=== PATIENT | female | born 1985 | race African-American/Black ===

== ENCOUNTER 2021-08-13 08:53 | Emergency (ER) | payer MEDICAID, OTHER, SELFPAY ==
[2021-08-13 09:04] VITALS: BP 151/49; PULSE 78; RESP 18; TEMP 36.6; O2SAT 98; BMI 31.7
--- NOTE | 2021-08-13 09:34 | ED_ITS ---
HPI - Dental/Oral General Chief complaint: Dental/Oral Stated complaint: dental pain Time Seen by Provider: 08/13/21 09:25 Source: patient Mode of arrival: ambulatory Limitations: no limitations History of Present Illness HPI Narrative: 36-year-old healthy female presents to the ED for right lower dental pain. Nayla lawson states she has right lower dental pain in tooth that had filling work done couple years ago that fell out and now with painful with slight swelling right side of face. Patient denies any drooling, shortness of breath, sensation of throat closing, or change in voice. Patient denies any recent trauma to the face, fever, chills, headache, or recent dental work. MD Complaint: tooth pain Related Data Previous Rx's Medication Instructions Recorded amoxicillin 875 mg-potassium 1 tab PO Q12H 10 Days #20 tab 08/13/21 clavulanate 125 mg tablet oxycodone-acetaminophen 5 mg-325 1 tab PO TID PRN 3 Days #9 tab 08/13/21 mg tablet (Percocet) Allergies Allergy/AdvReac Type Severity Reaction Status Date / Time No Known Allergies Allergy Verified 08/13/21 09:33 Review of Systems Review of Systems: Right lower molar dental pain with slight facial swelling. Yes all other systems are reviewed and are negative [facility] Social History Social History Advance Directives: No Advance Directives Information Provided: No Physical Exam Vital Signs: Vital Signs: Last Vital Signs Temp 98 F 08/13/21 09:04 Pulse 78 08/13/21 09:04 Resp 18 08/13/21 09:04 BP 151/49 H 08/13/21 09:04 Pulse Ox 98 08/13/21 09:04 BMI result Body Mass Index 31.7 Const: General: cooperative, healthy appearing, comfortable, no acute distress, well developed, alert, awake and Physically active Orientation/consciousness: patient oriented x3 HENMT: Head: Yes normal to inspection, Yes No palpable skull fracture present, Yes normocephalic and Yes atraumatic Head images: 1. slight swelling on palpation. negative for any neck swelling. Teeth image: 1. Cracked tooth with missing filling that is signifcantly tender on palpation. Negative for active pus collection. negative for gum erythema or fluctulance. tenderness on palpation of gum near tooth. negative for swelling of tongue floor. Eyes: General: appearance normal, both eyes and all related structures Neck: Neck: Yes normal visual inspection, Yes full ROM, Yes no lymphadenopathy, Yes no meningeal signs, Yes trachea midline, Yes supple, No anterior neck swelling and No tender Chest: Chest palpation & inspection: normal inspection of the chest and normal palpation of entire chest wall Resp: Effort & Inspection: normal respiratory effort and able to speak in complete sentences Cardio: Jugular venous distension: no JVD Heart sounds: S1 normal heart sound present and S2 normal heart sound present GI: Inspection: Yes normal to inspection and No abdominal wall ecchymosis Palpation (GI): Soft to palpation, not firm, nontender, no guarding and not rigid : General: No CVA tenderness and Yes no CVA tenderness Back/Spine/Pelvis: Back: no CVA tenderness, No CVA tenderness and No Qureshi- Barreto sign present Skin: General skin exam: no rashes or lesions noted and elasticity normal Neuro: General: patient oriented x3, gait normal, no meningeal signs, no focal motor deficits and CN's II-XI intact bilaterally Extrem: General: Yes normal to inspection and Yes full ROM Psych: Appearance: grossly normal, well kempt and not disheveled Course Course Course Narrative: No need for any further imaging. Patient vital signs are stable. Patient speaking in full sentences. Patient alert oriented x3. Reevaluation(s) Reevaluation #1: Presently not suspecting any retropharyngeal abscess or Elpidio's angina. Patient will be discharged with antibiotics and pain medication. First dose of narcotics given in the ED. Patient will be given list of referral of dentists to call. Patient does not have insurance will be given good Rx pharmacy card to make antibiotics affordable. Time: 09:43 MDM - Dental/Oral MDM Narrative Medical decision making narrative: Toothache Discharge Plan Discharge Clinical Impression: Toothache Patient Disposition: Home, Self-Care Instructions: Toothache (ED) Additional Instructions: You will be discharged with pain medication and antibiotics. You will need immediate follow-up with dentist from most likely tooth extraction. Return to the ED immediately for worsening pain, increased swelling of face, neck swelling, drooling, shortness of breath, chest pain, sensation of throat closing, change in voice, intractable fever, weakness, chills, or any other concerning symptoms. Please call one of the dental clinics from list of dentist given to you by our ER department. Prescriptions: New amoxicillin-pot clavulanate 875-125 mg tablet 1 tab PO Q12H 10 Days Qty: 20 0RF oxycodone-acetaminophen [Percocet] 5-325 mg tablet 1 tab PO TID PRN (Reason: pain) 3 Days Qty: 9 0RF Rx Instructions: side effect is drowsiness. Do not take at work or while driving. Stand Alone Forms: Work/School Release Interventions: ED Discharge Assessment Last Done: 08/13/21 09:59 Discharge Date/Time: 08/13/21 10:00 Print Language: Greek
[2021-08-13] MEDS: oxyCODONE HCl Immed Release 5 MG TABLET PO (09:41)
== END 2021-08-13 10:00 | disposition home or self-care (01) ==
LOC: HO.ED 09:47
PROVIDERS: Emergency Provider Emergency Medicine
DX: K08.89 Other specified disorders of teeth and supporting structures (principal)
CPT/HCPCS: 99283; 99284

== ENCOUNTER 2021-08-27 00:41 | Emergency (ER) | payer MEDICAID, OTHER, SELFPAY ==
--- NOTE | 2021-08-27 01:13 | ED.DENTAL ---
HPI - Dental/Oral General Chief complaint: Dental/Oral Stated complaint: dental pain Source: patient Mode of arrival: ambulatory Limitations: no limitations History of Present Illness HPI Narrative: 36-year-old female presents with dental pain and facial swelling. Was evaluated in this emergency department on 08/13/2021 but was unable to find a dentist as she does not have insurance. MD Complaint: tooth pain Teeth map: 1. Dental caries, broken tooth 30 and 29 Onset (ago): week(s) Duration: constant Severity: severe Severity scale (1-10): 9 Relieving factors: nothing Exacerbating factors: chewing, cold, heat and drinking fluids Context: history of dental caries and poor dental care Associated symptoms: gum swelling and pain with swallowing Treatment prior to arrival: none Related Data Previous Rx's Medication Instructions Recorded amoxicillin 875 mg-potassium 1 tab PO Q12H 10 Days #20 tab 08/13/21 clavulanate 125 mg tablet oxycodone-acetaminophen 5 mg-325 1 tab PO TID PRN 3 Days #9 tab 08/13/21 mg tablet (Percocet) clindamycin HCl 150 mg capsule 450 mg PO Q8H 7 Days #63 cap 08/27/21 ketorolac 10 mg tablet 10 mg PO Q6H PRN 5 Days #20 tab 08/27/21 Allergies Allergy/AdvReac Type Severity Reaction Status Date / Time No Known Allergies Allergy Verified 08/13/21 09:33 Review of Systems Review of Systems: Constitutional: No Fever, No Chills ENT/Mouth: No swallowing difficulty, no change in voice, positive dental pain, positive jaw pain, positive facial swelling Eyes: No Eye Pain, No Swelling Cardiovascular: No Chest Pain, No SOB Respiratory: No Cough, No Sputum, No Wheezing, No Smoke Exposure, No Dyspnea Gastrointestinal: No Nausea, No Vomiting, No Diarrhea Genitourinary: No Dysuria Musculoskeletal: No Myalgias Skin: No rash Neuro: No Weakness, No Numbness, No Headache Yes all other systems are reviewed and are negative [facility] Past Medical History Attestation statement: The following information was validated with the patient. Source: old records reviewed Social History Social History Advance Directives: No Advance Directives Information Provided: Yes Patient : No Physical Exam Vital Signs: Appearance: Alert. Oriented X3. Moderate distress. Eyes: Pupils equal, round and reactive to light. EOMI. Sclera nonicteric. ENT: Pharynx normal. No trismus. Able to manage secretions. Broken teeth noted at 29 and 30. Mid Mandibular pain noted on palpation. Neck: Normal inspection. Neck supple. CVS: Normal heart rate and rhythm. Pulses normal. Respiratory: No respiratory distress. Breath sounds normal. Abdomen: Soft and nontender. Skin: Skin warm and dry. Normal skin color. Normal skin turgor. Extremities: No lower extremity edema. Gait well-balanced well coordinated. Neuro: No motor deficit. No sensory deficit. Cranial nerves 2-12 intact. Course Course Course Narrative: 36-year-old female presents for dental pain. Was evaluated on 08/13/2021 and was unable to get into a dentist. Did complete her Augmentin and was prescribed Percocet for her pain. Patient states that she travels from [facility] for evaluation. At this time patient is afebrile, appears nontoxic, elevated blood pressure with normal heart rate respiration rate and temperature. O2 sat 99% on room air. Patient has been able to eat and drink with significant tenderness. Cracked tooth with missing filling that is signifcantly? tender on palpation. Negative for active pus collection, gum erythema or fluctulance. notable tenderness on palpation of gum near tooth. negative for swelling of tongue floor, no indication of Elpidio. At this time I will order IM Toradol, 1 dose of oxycodone, I will not be filling her prescription for Percocet I will give her ketorolac 10 mg p.o.. As she did complete Augmentin course I will give clindamycin 450 mg q.8 hours for the next 7 days. Patient was strongly advised to follow-up with a dentist. Patient verbalized understanding of and agrees to plan of care to discharge home. Verbalized understanding of signs and symptoms indicating need for emergent intervention MDM - Dental/Oral Differential Diagnosis Differential diagnosis: Likely gingival abscess, dental caries, toothache and fracture of tooth Medical Records Attestation: I reviewed the patient's medical records. Discharge Plan Discharge Clinical Impression: Pain, dental, Dental caries Patient Disposition: Home, Self-Care Instructions: Dental Abscess (ED), Toothache (ED) Additional Instructions: You were evaluated for dental pain. Please follow-up with a dentist. You may consider a dentist on [facility] in [facility]. Their phone number is [phone]. They may be able to take you. Please continue to follow-up with phone numbers that were provided to you. Thank you for choosing this emergency department for evaluation. Please follow-up with primary care physician as needed. Return to the emergency department for any new, concerning, or worsening symptoms. Prescriptions: New clindamycin HCl 150 mg capsule 450 mg PO Q8H 7 Days Qty: 63 0RF ketorolac 10 mg tablet 10 mg PO Q6H PRN (Reason: pain) 5 Days Qty: 20 0RF Rx Instructions: 60 mg IM dose given in the emergency department No Action amoxicillin-pot clavulanate 875-125 mg tablet 1 tab PO Q12H 10 Days Qty: 20 0RF oxycodone-acetaminophen [Percocet] 5-325 mg tablet 1 tab PO TID PRN (Reason: pain) 3 Days Qty: 9 0RF Rx Instructions: side effect is drowsiness. Do not take at work or while driving. Stand Alone Forms: Dental Emergency Numbers
[2021-08-27 01:15] VITALS: BP 148/89; PULSE 62; RESP 16; TEMP 37.2; O2SAT 100; BMI 28.2
[2021-08-27] MEDS: oxyCODONE HCl Immed Release 5 MG TABLET PO (01:33)
[2021-08-27] MEDS: Ketorolac Tromethamine 60 MG/2 ML VIAL IM (01:34)
== END 2021-08-27 01:55 | disposition home or self-care (01) ==
PROVIDERS: Emergency Provider Emergency Medicine
DX: K08.89 Other specified disorders of teeth and supporting structures (principal); K02.9 Dental caries, unspecified; K03.81 Cracked tooth
CPT/HCPCS: 96372; 99284; J1885